=== PATIENT | male | born 1985 | race Caucasian/White ===

== ENCOUNTER 2018-12-25 16:41 | Emergency (ER) | payer BC ==
[2018-12-25] MEDS ORDERED: ALBUTEROL 2.5 MG/3 ML NEB SOL ONE (18:16)
[2018-12-25] MEDS ORDERED: IPRATROPIUM BROM 0.5MG/2.5ML ONE (18:17)
--- NOTE | 2018-12-25 18:58 | RAD REPORT ---
EXAM DESCRIPTION: Ronn Chiu (2 Views)12/25/2018 6:48 pm CLINICAL HISTORY: sob COMPARISON: None FINDINGS: The lungs appear clear of acute infiltrate. The heart is normal size IMPRESSION: No acute abnormalities displayed
--- NOTE | 2018-12-25 19:04 | ER ---
Nurse's Notes [facility] Name: Theron Fowler Age: 33 yrs Sex: Male : 1985 Arrival Date: 12/25/2018 Time: 16:46 Bed 10 Private MD: None, None Diagnosis: Dyspnea Presentation: 12/25 16:58 Presenting complaint: Patient states: having shortness of breath since Tuesday, sg reports recently starting work at the [employer], has had some episodes of chest tightness, reports having stopped smoking about 1-2 days ago. Transition of care: patient was not received from another setting of care. Onset of symptoms was December 25, 2018. Risk Assessment: Do you want to hurt yourself or someone else? Patient reports no desire to harm self or others. Initial Sepsis Screen: Does the patient meet any 2 criteria? No. Patient's initial sepsis screen is negative. Care prior to arrival: None. 16:58 Method Of Arrival: Ambulatory 16:58 Acuity: ADIS 4 sg 18:15 Initial Sepsis Screen: Does the patient have a suspected source of infection? No. rv Patient's initial sepsis screen is negative. Historical: - Allergies: 16:58 SHELLFISH; sg - PMHx: 16:58 Asthma; sg - PSHx: 16:58 Hernia repair; Cholecystectomy; sg - Immunization history:: Adult Immunizations up to date. - Social history:: Smoking status: Patient uses tobacco products, denies chronic smoking, but will smoke occasionally. - Ebola Screening: : Patient negative for fever greater than or equal to 101.5 degrees Fahrenheit, and additional compatible Ebola Virus Disease symptoms Patient denies exposure to infectious person Patient denies travel to an Ebola-affected area in the 21 days before illness onset No symptoms or risks identified at this time. Screenin:15 Abuse screen: Denies threats or abuse. Denies injuries from another. Nutritional rv screening: No deficits noted. Tuberculosis screening: No symptoms or risk factors identified. Fall Risk None identified. Assessment: 18:14 General: Appears in no apparent distress. comfortable, Behavior is calm, cooperative. rv Pain: Denies pain. Neuro: Level of Consciousness is awake, alert, obeys commands, Oriented to person, place, time, situation. Cardiovascular: Capillary refill < 3 seconds. Respiratory: Airway is patent. GI: No signs and/or symptoms were reported involving the gastrointestinal system. : No signs and/or symptoms were reported regarding the genitourinary system. EENT: No signs and/or symptoms were reported regarding the EENT system. Derm: Skin is intact. Musculoskeletal: No signs and/or symptoms reported regarding the musculoskeletal system. Vital Signs: 16:59 BP 102 / 64; Pulse 64; Resp 17; Temp 97.2; Pulse Ox 100% on R/A; Weight 81.65 kg; sg Height 5 ft. 3 in. (160.02 cm); 19:09 BP 110 / 70; Pulse 70; Resp 18 S; Pulse Ox 100% on R/A; rv 16:59 Body Mass Index 31.89 (81.65 kg, 160.02 cm) ED Course: 16:46 Patient arrived in ED. sb2 16:47 None, None is Private Physician. sb2 16:58 Arm band placed on. sg 16:59 Triage completed. sg 17:54 Bárbara Ashraf F[facility]-C [facility]. kb 17:54 Ponce Herrera MD is Attending Physician. kb 18:15 Patient has correct armband on for positive identification. Bed in low position. Call rv light in reach. Pulse ox on. NIBP on. 18:46 X-ray completed. Patient tolerated procedure well. Patient moved back from radiology. [facility] 18:48 Chest Pa And Lat (2 Views) XRAY In Process Unspecified. EDMS 19:08 No provider procedures requiring assistance completed. Patient did not have IV access rv during this emergency room visit. Administered Medications: 18:05 Drug: DuoNeb (3:1) (2.5 mg - 0.5 mg) 3 ml Route: Nebulizer; rv 19:08 Follow up: Response: Marked relief of symptoms rv Outcome: 19:04 Discharge ordered by . kb 19:08 Discharged to home ambulatory. rv 19:08 Condition: good 19:08 Discharge instructions given to patient, Instructed on discharge instructions, follow up and referral plans. medication usage, Demonstrated understanding of instructions, follow-up care, medications, Prescriptions given X 1. 19:15 Patient left the ED. rv Signatures: Dispatcher [employer] EDMS Bárbara Ashraf FNP-C FNP-Ckb Gay, Steven, RN RN Paulette Tamez 1 Scarlett Duron sb2 Otf, Fred, RN RN rv
--- NOTE | 2018-12-25 19:04 | EDPHYS ---
Physician Documentation [facility] Name: Theron Fowler Age: 33 yrs Sex: Male : 1985 Arrival Date: 12/25/2018 Time: 16:46 Bed 10 Private MD: None, None ED Physician Ponce Herrera HPI: 12/25 19:03 This 33 yrs old Male presents to ER via Ambulatory with complaints of Asthma. kb 19:03 The patient has shortness of breath and the patient has a history of asthma, kb intermittently. Onset: The symptoms/episode began/occurred 3 day(s) ago. Duration: The symptoms are intermittent, with no pattern. The patient's shortness of breath has no apparent modifying factors. Associated signs and symptoms: The patient has no apparent associated signs or symptoms. Severity of symptoms: At their worst the symptoms were mild moderate in the emergency department the symptoms have improved moderately. The patient has not experienced similar symptoms in the past. The patient has not recently seen a physician. Historical: - Allergies: 16:58 SHELLFISH; sg - PMHx: 16:58 Asthma; sg - PSHx: 16:58 Hernia repair; Cholecystectomy; sg - Immunization history:: Adult Immunizations up to date. - Social history:: Smoking status: Patient uses tobacco products, denies chronic smoking, but will smoke occasionally. - Ebola Screening: : Patient negative for fever greater than or equal to 101.5 degrees Fahrenheit, and additional compatible Ebola Virus Disease symptoms Patient denies exposure to infectious person Patient denies travel to an Ebola-affected area in the 21 days before illness onset No symptoms or risks identified at this time. ROS: 18:29 Constitutional: Negative for fever, chills, and weight loss, ENT: Negative for injury, kb pain, and discharge, Neck: Negative for injury, pain, and swelling, Cardiovascular: Negative for chest pain, palpitations, and edema, Abdomen/GI: Negative for abdominal pain, nausea, vomiting, diarrhea, and constipation, Back: Negative for injury and pain, MS/Extremity: Negative for injury and deformity, Skin: Negative for injury, rash, and discoloration, Neuro: Negative for headache, weakness, numbness, tingling, and seizure. 18:29 Respiratory: Positive for shortness of breath, Negative for cough, dyspnea on exertion, hemoptysis, orthopnea, pleurisy, sputum production, wheezing. Exam: 18:31 Constitutional: This is a well developed, well nourished patient who is awake, alert, kb and in no acute distress. Head/Face: Normocephalic, atraumatic. Chest/axilla: Normal chest wall appearance and motion. Nontender with no deformity. No lesions are appreciated. Cardiovascular: Regular rate and rhythm with a normal S1 and S2. No gallops, murmurs, or rubs. Normal PMI, no JVD. No pulse deficits. Respiratory: Lungs have equal breath sounds bilaterally, clear to auscultation and percussion. No rales, rhonchi or wheezes noted. No increased work of breathing, no retractions or nasal flaring. Abdomen/GI: Soft, non-tender, with normal bowel sounds. No distension or tympany. No guarding or rebound. No evidence of tenderness throughout. Back: No spinal tenderness. No costovertebral tenderness. Full range of motion. Skin: Warm, dry with normal turgor. Normal color with no rashes, no lesions, and no evidence of cellulitis. MS/ Extremity: Pulses equal, no cyanosis. Neurovascular intact. Full, normal range of motion. Neuro: Awake and alert, GCS 15, oriented to person, place, time, and situation. Cranial nerves II-XII grossly intact. Motor strength 5/5 in all extremities. Sensory grossly intact. Cerebellar exam normal. Normal gait. Vital Signs: 16:59 BP 102 / 64; Pulse 64; Resp 17; Temp 97.2; Pulse Ox 100% on R/A; Weight 81.65 kg; sg Height 5 ft. 3 in. (160.02 cm); 19:09 BP 110 / 70; Pulse 70; Resp 18 S; Pulse Ox 100% on R/A; rv 16:59 Body Mass Index 31.89 (81.65 kg, 160.02 cm) sg MDM: 17:54 Patient medically screened. kb 18:29 Data reviewed: vital signs, nurses notes. Data interpreted: Pulse oximetry: on room air kb is 100 %. Interpretation: normal. 19:02 Counseling: I had a detailed discussion with the patient and/or guardian regarding: the kb historical points, exam findings, and any diagnostic results supporting the discharge/admit diagnosis, radiology results, the need for outpatient follow up, a family practitioner, to return to the emergency department if symptoms worsen or persist or if there are any questions or concerns that arise at home. 12/25 18:03 Order name: Chest Pa And Lat (2 Views) XRAY; Complete Time: 19:02 kb Administered Medications: 18:05 Drug: DuoNeb (3:1) (2.5 mg - 0.5 mg) 3 ml Route: Nebulizer; rv 19:08 Follow up: Response: Marked relief of symptoms rv Disposition: 12/26 12:37 Co-signature as Attending Physician, Ponce Herrera MD. rn Disposition: 12/25/18 19:04 Discharged to Home. Impression: Dyspnea. - Condition is Stable. - Discharge Instructions: Shortness of Breath, [id number], Asthma, Adult, [id number]. - Prescriptions for Albuterol Sulfate 90 mcg/actuation - inhale 1-2 puff by INHALATION route every 4-6 hours; 1 Inhaler. - Medication Reconciliation Form, Thank You Letter, Antibiotic Education, Prescription Opioid Use, Work release form form. - Follow up: Emergency Department; When: As needed; Reason: Worsening of condition. Follow up: Private Physician; When: 2 - 3 days; Reason: Recheck today's complaints, Continuance of care, Re-evaluation by your physician. Signatures: Dispatcher [employer] EDBárbara Gaines, JOSÉ ANTONIO BETANCOURTP-Chai Reveles RN RN sg Nieto, Roman, MD MD rn Vicente, Ronaldo, RN RN rv Corrections: (The following items were deleted from the chart) 12/25 19:15 19:04 12/25/2018 19:04 Discharged to Home. Impression: Dyspnea. Condition is Stable. rv Forms are Medication Reconciliation Form, Thank You Letter, Antibiotic Education, Prescription Opioid Use. Follow up: Emergency Department; When: As needed; Reason: Worsening of condition. Follow up: Private Physician; When: 2 - 3 days; Reason: Recheck today's complaints, Continuance of care, Re-evaluation by your physician. kb
== END 2018-12-25 19:15 | disposition home or self-care (01) ==
LOC: ER 16:41
DX: R06.00 Dyspnea, unspecified (principal); Z72.0 Tobacco use
CPT/HCPCS: 71046; 94640; 99284

== ENCOUNTER 2019-01-29 20:56 | Emergency (ER) | payer BC ==
--- OUTSIDE RECORDS SUMMARY | 2019-01-29 20:58 | XMS REPORT ---
:1985 [facility] Address [address] [place] [address] Care Team Providers Name Role Phone Unavailable Unavailable Unavailable Problems This patient has no known problems. Allergies, Adverse Reactions, Alerts This patient has no known allergies or adverse reactions. Medications This patient has no known medications.
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
== END 2019-01-30 00:24 | disposition home or self-care (01) ==
LOC: ER 20:56
DX: S62.317A Displaced fracture of base of fifth metacarpal bone, left hand, initial encounter for closed fracture (principal); V49.9XXA Car occupant (driver) (passenger) injured in unspecified traffic accident, initial encounter; J45.909 Unspecified asthma, uncomplicated; Z91.013 Allergy to seafood
CPT/HCPCS: 99283

== ENCOUNTER 2019-10-22 09:18 | Emergency (ER) | payer BC ==
--- OUTSIDE RECORDS SUMMARY | 2019-10-22 09:20 | XMS REPORT ---
:1985 [facility] Address [address] [place] [address] Care Team Providers Name Role Phone Unavailable Unavailable Unavailable Problems This patient has no known problems. Allergies, Adverse Reactions, Alerts This patient has no known allergies or adverse reactions. Medications This patient has no known medications.
--- NOTE | 2019-10-22 10:03 | ER ---
Nurse's Notes [facility] Name: Theron Fowler Age: 34 yrs Sex: Male : 1985 Arrival Date: 10/22/2019 Time: 09:23 Bed 20 Private MD: Diagnosis: Acute sinusitis Presentation: 10/22 09:40 Presenting complaint: Patient states: sinus pressure, headache, X 3 days, +headache, no iw cough, no congestion. Transition of care: patient was not received from another setting of care. Onset of symptoms was October 20, 2019. Risk Assessment: Do you want to hurt yourself or someone else? Patient reports no desire to harm self or others. Initial Sepsis Screen: Does the patient meet any 2 criteria? No. Patient's initial sepsis screen is negative. Does the patient have a suspected source of infection? No. Patient's initial sepsis screen is negative. Care prior to arrival: None. 09:40 Method Of Arrival: Ambulatory iw 09:40 Acuity: ADIS 4 iw Historical: - Allergies: 09:44 SHELLFISH; iw - Home Meds: 09:44 None [Active]; iw - PMHx: 09:44 Asthma; iw - PSHx: 09:44 Hernia repair; Cholecystectomy; iw - Immunization history:: Adult Immunizations not up to date. - Social history:: Smoking status: Patient/guardian denies using tobacco. - Ebola Screening: : Patient negative for fever greater than or equal to 101.5 degrees Fahrenheit, and additional compatible Ebola Virus Disease symptoms Patient denies exposure to infectious person Patient denies travel to an Ebola-affected area in the 21 days before illness onset No symptoms or risks identified at this time. Screenin:40 Abuse screen: Denies threats or abuse. Nutritional screening: No deficits noted. aa5 Tuberculosis screening: No symptoms or risk factors identified. Fall Risk None identified. Assessment: 09:40 General: Appears comfortable, Behavior is calm, cooperative. Pain: Complains of pain in aa5 forehead Pain does not radiate. Pain currently is 5 out of 10 on a pain scale. Quality of pain is described as pressure, Pain began 2-3 days ago. Is continuous. Neuro: Level of Consciousness is awake, alert, obeys commands, Oriented to person, place, time, situation, Union Laborer are equal bilaterally Moves all extremities. Speech is normal, Facial symmetry appears normal, Pupils are PERRLA. Cardiovascular: Heart tones S1 S2 present Capillary refill < 3 seconds is brisk in bilateral fingers Rhythm is regular. Respiratory: Airway is patent Respiratory effort is even, unlabored, Respiratory pattern is regular, symmetrical, Breath sounds are clear bilaterally. Denies cough, shortness of breath. GI: No signs and/or symptoms were reported involving the gastrointestinal system. : No signs and/or symptoms were reported regarding the genitourinary system. EENT: Denies nasal congestion, nasal discharge, Pt states "It started with the inside of my right ear was itching on Tuesday but it's not anymore" . Derm: Skin is pink, warm \\T\\ dry. Musculoskeletal: Range of motion: intact in all extremities. 10:18 Reassessment: Patient is alert, oriented x 3, equal unlabored respirations, skin aa5 warm/dry/pink. Vital Signs: 09:44 BP 129 / 84; Pulse 98; Resp 16; Temp 97.8; Pulse Ox 99% on R/A; Weight 81.65 kg; Height iw 5 ft. 4 in. (162.56 cm); 09:44 Body Mass Index 30.90 (81.65 kg, 162.56 cm) iw ED Course: 09:23 Patient arrived in ED. mr 09:24 Chad Kennedy FNP-C [facility] la1 09:24 Ponce Herrera MD is Attending Physician. la1 09:37 Tori Barnes, STEVIE is Primary Nurse. aa5 09:39 Arm band placed on. aa5 09:39 Patient has correct armband on for positive identification. Bed in low position. Call aa5 light in reach. Side rails up X 1. 09:43 Triage completed. iw 10:18 No provider procedures requiring assistance completed. Patient did not have IV access aa5 during this emergency room visit. Administered Medications: No medications were administered Outcome: 09:58 Discharge ordered by . la1 10:18 Discharged to home ambulatory. aa5 10:18 Condition: good 10:18 Discharge instructions given to patient, Instructed on discharge instructions, follow up and referral plans. medication usage, Demonstrated understanding of instructions, follow-up care, medications, Prescriptions given X 1. 10:20 Patient left the ED. tw2 Signatures: Neisha Marino Patt Murillo, RN RN iw Tori Barnes, RN RN aa5 Chad Kennedy, VACUUM EVAPORATION OPERATOR-C VACUUM EVAPORATION OPERATOR-Cla1 Bee Tavera, RN RN tw2
--- NOTE | 2019-10-22 10:04 | EDPHYS ---
Physician Documentation [facility] Name: Theron Fowler Age: 34 yrs Sex: Male : 1985 Arrival Date: 10/22/2019 Time: 09:23 Bed 20 Private MD: ED Physician Ponce Herrera HPI: 10/22 10:18 This 34 yrs old Male presents to ER via Ambulatory with complaints of Sinus la1 Pain. 10:18 Onset: The symptoms/episode began/occurred 3 day(s) ago. Associated signs and symptoms: la1 Pertinent positives: congestion, headache, nasal discharge, Pertinent negatives: constipation, fever. Modifying factors: The patient symptoms are alleviated by the patient symptoms are aggravated by nothing. Severity of symptoms: At their worst the symptoms were mild. Modifying factors: The symptoms are alleviated by nothing, the symptoms are aggravated by nothing. Associated signs and symptoms: Pertinent positives: rhinorrhea, Pertinent negatives: sore throat. Sinus congestion and JOHNSON for the last three days, did not feel like he could continue working so needed to come in. Historical: - Allergies: 09:44 SHELLFISH; iw - Home Meds: :44 None [Active]; iw - PMHx: 09:44 Asthma; iw - PSHx: 09:44 Hernia repair; Cholecystectomy; iw - Immunization history:: Adult Immunizations not up to date. - Social history:: Smoking status: Patient/guardian denies using tobacco. - Ebola Screening: : Patient negative for fever greater than or equal to 101.5 degrees Fahrenheit, and additional compatible Ebola Virus Disease symptoms Patient denies exposure to infectious person Patient denies travel to an Ebola-affected area in the 21 days before illness onset No symptoms or risks identified at this time. ROS: 10:19 Constitutional: Negative for fever, chills, and weight loss, Eyes: Negative for injury, la1 pain, redness, and discharge, Neck: Negative for injury, pain, and swelling, Cardiovascular: Negative for chest pain, palpitations, and edema, Respiratory: Negative for shortness of breath, cough, wheezing, and pleuritic chest pain, Abdomen/GI: Negative for abdominal pain, nausea, vomiting, diarrhea, and constipation, MS/Extremity: Negative for injury and deformity, Neuro: Negative for headache, weakness, numbness, tingling, and seizure. 10:19 ENT: Positive for nasal discharge, rhinorrhea, sinus congestion. Exam: 10:20 Constitutional: This is a well developed, well nourished patient who is awake, alert, la1 and in no acute distress. Head/Face: Normocephalic, atraumatic. Eyes: Pupils equal round and reactive to light, extra-ocular motions intact. Lids and lashes normal. Conjunctiva and sclera are non-icteric and not injected. Cornea within normal limits. Periorbital areas with no swelling, redness, or edema. ENT: Nares patent. No nasal discharge, no septal abnormalities noted. Right TM appears to have perforation, no redness, drainage Cardiovascular: Regular rate and rhythm with a normal S1 and S2. No gallops, murmurs, or rubs. Normal PMI, no JVD. No pulse deficits. Respiratory: Lungs have equal breath sounds bilaterally, clear to auscultation and percussion. No rales, rhonchi or wheezes noted. No increased work of breathing, no retractions or nasal flaring. Abdomen/GI: Soft, non-tender, with normal bowel sounds. No distension or tympany. No guarding or rebound. No evidence of tenderness throughout. Vital Signs: 09:44 BP 129 / 84; Pulse 98; Resp 16; Temp 97.8; Pulse Ox 99% on R/A; Weight 81.65 kg; Height iw 5 ft. 4 in. (162.56 cm); 09:44 Body Mass Index 30.90 (81.65 kg, 162.56 cm) iw MDM: 09:36 Patient medically screened. la1 09:50 Data reviewed: vital signs, nurses notes, and as a result, I will discharge patient. la1 Data interpreted: Pulse oximetry: on room air is 99 %. Interpretation: normal. Counseling: I had a detailed discussion with the patient and/or guardian regarding: the historical points, exam findings, and any diagnostic results supporting the discharge/admit diagnosis, the need for outpatient follow up, a family practitioner. ED course: Pt tolerating PO, no fevers reported symptoms for three days, will FU with PCP, offered testing for flu, pt declined, will treat symptomatically and have pt return with new or worsening symptoms. Administered Medications: No medications were administered Disposition: 17:06 Co-signature as Attending Physician, Ponce Herrera MD. rn Disposition: 12/02/19 09:58 Discharged to Home. Impression: Acute sinusitis. - Condition is Stable. - Discharge Instructions: Sinus Headache, Sinusitis, Adult. - Prescriptions for Zofran 4 mg Oral Tablet - take 1 tablet by ORAL route every 12 hours As needed; 20 tablet. - Work release form, Medication Reconciliation Form, Thank You Letter form. - Follow up: Private Physician; When: 2 - 3 days; Reason: Recheck today's complaints, Re-evaluation by your physician. - Problem is new. - Symptoms are unchanged. Signatures: Patt Chao RN RN Ponce Whyte MD MD rn Chad Kennedy, LUMBER KILN OPERATOR-C LUMBER KILN OPERATOR-Cla1 Bee Tavera RN RN tw2 Corrections: (The following items were deleted from the chart) 10:20 09:58 10/22/2019 09:58 Discharged to Home. Impression: Acute sinusitis. Condition is tw2 Stable. Forms are Medication Reconciliation Form, Thank You Letter, Antibiotic Education, Prescription Opioid Use. Follow up: Private Physician; When: 2 - 3 days; Reason: Recheck today's complaints, Re-evaluation by your physician. Problem is new. Symptoms are unchanged. la1
[2019-10-22 10:26] VITALS: BP 129/84; TEMP 97.8; O2SAT 99
== END 2019-10-22 10:20 | disposition home or self-care (01) ==
LOC: ER 09:18
DX: J01.90 Acute sinusitis, unspecified (principal); Z91.013 Allergy to seafood
CPT/HCPCS: 99282

== ENCOUNTER 2019-11-12 18:46 | Emergency (ER) | payer BC ==
--- OUTSIDE RECORDS SUMMARY | 2019-11-12 18:49 | XMS REPORT ---
:1985 [facility] Address [address] [place] [address] Care Team Providers Name Role Phone Unavailable Unavailable Unavailable Problems This patient has no known problems. Allergies, Adverse Reactions, Alerts This patient has no known allergies or adverse reactions. Medications This patient has no known medications.
[2019-11-12] MEDS ORDERED: IPRATROPIUM BROM 0.5MG/2.5ML ONE (20:33)
[2019-11-12] MEDS ORDERED: NA CHLORIDE 0.9% 1,000 ML ONE (20:33)
[2019-11-12] MEDS ORDERED: ALBUTEROL 2.5 MG/3 ML NEB SOL ONE (20:33)
[2019-11-12 21:14] LABS: Basophils % 0.4 % (0-1.3); Hematocrit 43.7 % (39.6-49.0); Lymphocytes % 25.7 % (15.3-44.8); MPV 7.2 fL (7.6-11.3); RBC Red Blood Cell Count 4.95 M/uL (4.33-5.43)
[2019-11-12] MEDS ORDERED: METHYLPREDNISOLONE 125 MG INJ ONE (21:30)
[2019-11-12] MEDS ORDERED: AZITHROMYCIN 500 MG INJ IVPB ONE (21:31)
[2019-11-12] MEDS ORDERED: predniSONE 20 MG TAB ONE (21:31)
[2019-11-12] MEDS ORDERED: NA CHLORIDE 0.9% 250 ML ONE (21:31)
[2019-11-12] MEDS ORDERED: CEFTRIAXONE/SWI 1gm 2 GM/20 ML SYR ONE (21:31)
[2019-11-12 21:43] LABS: Albumin 4.1 g/dL (3.4-5.0); Bilirubin Total 0.3 mg/dL (0.2-1.0); Potassium 3.6 mmol/L (3.5-5.1); Protein, Total 7.5 g/dL (6.4-8.2)
--- NOTE | 2019-11-12 21:54 | EDPHYS ---
Physician Documentation [facility] Name: Theron Fowler Age: 34 yrs Sex: Male : 1985 Arrival Date: 11/12/2019 Time: 18:48 Bed 24 Private MD: ED Physician Quincy Queen HPI: 11/12 20:29 This 34 yrs old Male presents to ER via Ambulatory with complaints of Sinus jolene Pain, Chest Congestion, Leg Swelling. 20:29 The patient or guardian reports cough, difficulty breathing. Onset: The jolene symptoms/episode began/occurred 3 week(s) ago. Severity of symptoms: At their worst the symptoms were moderate, in the emergency department the symptoms are unchanged. Modifying factors: The symptoms are alleviated by nothing, the symptoms are aggravated by nothing. Associated signs and symptoms: Pertinent positives: chest pain, fever, nausea, rhinorrhea, sore throat. The patient has not experienced similar symptoms in the past. Historical: - Allergies: 18:55 SHELLFISH; sv - PMHx: 18:55 Asthma; sv - PSHx: 18:55 Hernia repair; Cholecystectomy; sv - Immunization history:: Flu vaccine status is unknown. - Social history:: Smoking status: unknown. - Ebola Screening: : No symptoms or risks identified at this time. ROS: 20:30 Constitutional: Negative for fever, chills, and weight loss, Eyes: Negative for injury, jolene pain, redness, and discharge, ENT: Negative for injury, pain, and discharge, Neck: Negative for injury, pain, and swelling, Cardiovascular: Negative for chest pain, palpitations, and edema, Abdomen/GI: Negative for abdominal pain, nausea, vomiting, diarrhea, and constipation, Back: Negative for injury and pain, : Negative for injury, bleeding, discharge, and swelling, MS/Extremity: Negative for injury and deformity, Skin: Negative for injury, rash, and discoloration, Neuro: Negative for headache, weakness, numbness, tingling, and seizure, Psych: Negative for depression, anxiety, suicide ideation, homicidal ideation, and hallucinations, Allergy/Immunology: Negative for hives, rash, and allergies, Endocrine: Negative for neck swelling, polydipsia, polyuria, polyphagia, and marked weight changes, Hematologic/Lymphatic: Negative for swollen nodes, abnormal bleeding, and unusual bruising. 20:30 Respiratory: Positive for cough, shortness of breath, at rest. Exam: 20:30 Constitutional: This is a well developed, well nourished patient who is awake, alert, jolene and in no acute distress. Head/Face: Normocephalic, atraumatic. Eyes: Pupils equal round and reactive to light, extra-ocular motions intact. Lids and lashes normal. Conjunctiva and sclera are non-icteric and not injected. Cornea within normal limits. Periorbital areas with no swelling, redness, or edema. ENT: Nares patent. No nasal discharge, no septal abnormalities noted. Tympanic membranes are normal and external auditory canals are clear. Oropharynx with no redness, swelling, or masses, exudates, or evidence of obstruction, uvula midline. Mucous membranes moist. Neck: Trachea midline, no thyromegaly or masses palpated, and no cervical lymphadenopathy. Supple, full range of motion without nuchal rigidity, or vertebral point tenderness. No Meningismus. Chest/axilla: Normal chest wall appearance and motion. Nontender with no deformity. No lesions are appreciated. Cardiovascular: Regular rate and rhythm with a normal S1 and S2. No gallops, murmurs, or rubs. Normal PMI, no JVD. No pulse deficits. Abdomen/GI: Soft, non-tender, with normal bowel sounds. No distension or tympany. No guarding or rebound. No evidence of tenderness throughout. Back: No spinal tenderness. No costovertebral tenderness. Full range of motion. Male : Normal genitalia with no discharge or lesions. Skin: Warm, dry with normal turgor. Normal color with no rashes, no lesions, and no evidence of cellulitis. MS/ Extremity: Pulses equal, no cyanosis. Neurovascular intact. Full, normal range of motion. Neuro: Awake and alert, GCS 15, oriented to person, place, time, and situation. Cranial nerves II-XII grossly intact. Motor strength 5/5 in all extremities. Sensory grossly intact. Cerebellar exam normal. Normal gait. Psych: Awake, alert, with orientation to person, place and time. Behavior, mood, and affect are within normal limits. 20:30 Respiratory: mild respiratory distress is noted, Respirations: labored breathing, is not present, Breath sounds: rhonchi, that are moderate, are heard in the right upper lobe, right middle lobe, right posterior upper lobe, right posterior middle lobe and right posterior lower lobe, stridor, is not appreciated, + upper airway congestion. wheezing: expiratory is heard in the right posterior upper lobe, right posterior middle lobe and right posterior lower lobe. 20:40 Musculoskeletal/extremity: DVT Exam: No signs of deep vein thrombosis. no pain, no jolene swelling, no tenderness, negative Homans' sign noted on exam, no appreciated bluish discoloration, no erythema, no increased warmth. 21:28 Musculoskeletal/extremity: DVT Exam: [facility] Vital Signs: 18:55 BP 137 / 74; Pulse 95; Resp 20; Temp 98.8; Pulse Ox 99% ; Weight 81.65 kg; Height 5 ft. sv 4 in. (162.56 cm); 21:43 Pulse 82; Resp 18; Temp 98.3; Pulse Ox 100% on R/A; mg2 21:46 BP 118 / 70; mg2 22:44 BP 120 / 78; Pulse 80; Resp 18; Temp 98; Pulse Ox 100% on R/A; mg2 18:55 Body Mass Index 30.90 (81.65 kg, 162.56 cm) sv MDM: 19:35 Patient medically screened. [facility] 20:31 Data reviewed: vital signs, nurses notes, lab test result(s), radiologic studies, plain jolene films. 11/12 20:25 Order name: CBC with Diff; Complete Time: 21:26 [facility] 11/12 20:25 Order name: Comprehensive Metabolic Panel; Complete Time: 21:52 [facility] 11/12 20:25 Order name: Blood Culture Adult (2) [facility] 11/12 20:40 Order name: Chest Pa And Lat (2 Views) XRAY [facility] Administered Medications: 20:49 Drug: NS 0.9% 1000 ml Route: IV; Rate: 1 bolus; Site: right forearm; mg2 22:44 Follow up: Response: No adverse reaction; IV Status: Completed infusion; IV Intake: mg2 1000ml 20:49 Drug: Xopenex 2.5 mg Route: Inhalation; mg2 22:43 Follow up: Response: No adverse reaction mg2 20:49 Drug: AtroVENT Aerosol 0.5 mg Route: Inhalation; mg2 22:43 Follow up: Response: No adverse reaction mg2 21:41 Drug: Rocephin 1 grams Route: IV; Rate: per protocol; Site: right forearm; mg2 22:42 Follow up: IV Status: Completed infusion mg2 21:41 Drug: SOLU-Medrol 125 mg Route: IVP; Site: right forearm; mg2 22:41 Follow up: Response: No adverse reaction; Marked relief of symptoms mg2 21:41 Drug: predniSONE 40 mg Route: PO; mg2 22:41 Follow up: Response: No adverse reaction; Marked relief of symptoms mg2 21:42 Drug: Rocephin 1 grams Route: IV; Rate: per protocol; Site: right forearm; mg2 22:43 Follow up: Response: No adverse reaction; IV Status: Completed infusion mg2 21:42 Drug: Zithromax 500 mg Route: IVPB; Infused Over: 1 hrs; Site: right forearm; mg2 22:43 Follow up: Response: No adverse reaction; IV Status: Completed infusion; IV Intake: mg2 250ml Disposition: 11/12/19 21:53 Discharged to Home. Impression: Asthma, Acute upper respiratory infection, unspecified, Bronchitis, not specified as acute or chronic. - Condition is Stable. - Discharge Instructions: Upper Respiratory Infection, Adult, Cool Mist Vaporizer, Upper Respiratory Infection, Adult, [id number], Cough, Adult, [id number], Cough, Adult. - Prescriptions for Albuterol Sulfate 2.5 mg /3 mL (0.083 %) Inhalation Solution for Nebulization - inhale 1 unit by NEBULIZATION route every 8 hours As needed; 1 box. Prednisone 20 mg Oral Tablet - take 2 tablet by ORAL route once daily for 5 days; 10 tablet. Albuterol Sulfate 90 mcg/actuation - inhale 1-2 puff by INHALATION route every 4-6 hours; 1 Inhaler. Zithromax 500 mg Oral Tablet - take 1 tablet by ORAL route once daily for 5 days; 5 tablet. - Medication Reconciliation Form, Thank You Letter, Antibiotic Education, Prescription Opioid Use form. - Follow up: Private Physician; When: 2 - 3 days; Reason: Recheck today's complaints, Continuance of care, Re-evaluation by your physician. - Problem is new. - Symptoms have improved. Signatures: Dispatcher [employer] Nithya Hughes RN RN sv Anderson, Corey, MD MD cha Gardose, Michele, RN RN mg2 Corrections: (The following items were deleted from the chart) 22:45 21:53 11/12/2019 21:53 Discharged to Home. Impression: Asthma; Acute upper respiratory mg2 infection, unspecified; Bronchitis, not specified as acute or chronic. Condition is Stable. Discharge Instructions: Upper Respiratory Infection, Adult, Cool Mist Vaporizer, Upper Respiratory Infection, Adult, [id number], Cough, Adult, [id number], Cough, Adult. Prescriptions for Albuterol Sulfate 2.5 mg /3 mL (0.083 %) Inhalation Solution for Nebulization - inhale 1 unit by NEBULIZATION route every 8 hours As needed; 1 box, Prednisone 20 mg Oral Tablet - take 2 tablet by ORAL route once daily for 5 days; 10 tablet, Albuterol Sulfate 90 mcg/actuation - inhale 1-2 puff by INHALATION route every 4-6 hours; 1 Inhaler, Zithromax 500 mg Oral Tablet - take 1 tablet by ORAL route once daily for 5 days; 5 tablet. and Forms are Medication Reconciliation Form, Thank You Letter, Antibiotic Education, Prescription Opioid Use. Follow up: Private Physician; When: 2 - 3 days; Reason: Recheck today's complaints, Continuance of care, Re-evaluation by your physician. Problem is new. Symptoms have improved. jolene
--- NOTE | 2019-11-12 21:54 | ER ---
Nurse's Notes [facility] Name: Theron Fowler Age: 34 yrs Sex: Male : 1985 Arrival Date: 11/12/2019 Time: 18:48 Bed 24 Private MD: Diagnosis: Asthma;Acute upper respiratory infection, unspecified;Bronchitis, not specified as acute or chronic Presentation: 11/12 18:54 Presenting complaint: Patient states: sinus pain, chest congestion, sore throat has sv been ongoing since , was seen here about 2 weeks ago for the same symptoms. Also added on LLE swelling after a recent fall, reports a hx of a left leg injury back in Dec. Transition of care: patient was not received from another setting of care. Onset of symptoms was 2018. Risk Assessment: Do you want to hurt yourself or someone else? Patient reports no desire to harm self or others. Care prior to arrival: None. 18:54 Method Of Arrival: Ambulatory sv 18:54 Acuity: ADIS 3 sv 20:09 Initial Sepsis Screen: Does the patient meet any 2 criteria? No. Patient's initial mg2 sepsis screen is negative. Does the patient have a suspected source of infection? No. Patient's initial sepsis screen is negative. Triage Assessment: 18:54 General: Appears in no apparent distress. comfortable, well developed, Behavior is sv calm, cooperative, appropriate for age. Pain: Complains of pain in face Pain currently is 4 out of 10 on a pain scale. Pain began "since about " Is intermittent, Also complains of no other associated symptoms. Neuro: Level of Consciousness is awake, alert, obeys commands, Oriented to person, place, time, situation, Gait is steady. Respiratory: Airway is patent Respiratory effort is even, unlabored, Respiratory pattern is regular, symmetrical. Derm: Skin is pink, warm \\T\\ dry. Musculoskeletal: Range of motion: intact in all extremities. 20:10 Headache History: The patient has had previous headaches. mg2 Historical: - Allergies: 18:55 SHELLFISH; sv - PMHx: 18:55 Asthma; sv - PSHx: 18:55 Hernia repair; Cholecystectomy; sv - Immunization history:: Flu vaccine status is unknown. - Social history:: Smoking status: unknown. - Ebola Screening: : No symptoms or risks identified at this time. Screenin:50 Abuse screen: Denies threats or abuse. Denies injuries from another. Nutritional mg2 screening: No deficits noted. Tuberculosis screening: No symptoms or risk factors identified. Fall Risk None identified. Assessment: 19:52 General: Appears in no apparent distress. comfortable, Behavior is calm, cooperative. mg2 20:07 Pain: Complains of pain in left leg. Neuro: Level of Consciousness is awake, alert, mg2 obeys commands, Oriented to person, place, time, situation. Cardiovascular: Capillary refill < 3 seconds Patient's skin is warm and dry. Respiratory: Airway is patent Respiratory effort is even, unlabored, Respiratory pattern is regular, symmetrical. Respiratory: Reports cough that is productive. GI: No signs and/or symptoms were reported involving the gastrointestinal system. : No signs and/or symptoms were reported regarding the genitourinary system. EENT: Reports nasal congestion. Derm: Skin is intact, is healthy with good turgor, Skin is pink, warm \\T\\ dry. normal. Musculoskeletal: Circulation, motion, and sensation intact. Capillary refill < 3 seconds. 21:54 Reassessment: patient for dc after completing iv antibiotic. mg2 22:44 Reassessment: Patient appears in no apparent distress at this time. Patient states mg2 feeling better. Vital Signs: 18:55 BP 137 / 74; Pulse 95; Resp 20; Temp 98.8; Pulse Ox 99% ; Weight 81.65 kg; Height 5 ft. sv 4 in. (162.56 cm); 21:43 Pulse 82; Resp 18; Temp 98.3; Pulse Ox 100% on R/A; mg2 21:46 BP 118 / 70; mg2 22:44 BP 120 / 78; Pulse 80; Resp 18; Temp 98; Pulse Ox 100% on R/A; mg2 18:55 Body Mass Index 30.90 (81.65 kg, 162.56 cm) sv ED Course: 18:48 Patient arrived in ED. ag5 18:55 Triage completed. sv 18:56 Arm band placed on. sv 19:23 Quincy Queen MD is Attending Physician. jolene 19:32 Jarod Arguelles, STEVIE is Primary Nurse. mg2 19:51 No provider procedures requiring assistance completed. mg2 19:52 Patient has correct armband on for positive identification. mg2 20:51 Inserted saline lock: 20 gauge in right forearm, using aseptic technique. Blood mg2 collected. 20:57 Chest Pa And Lat (2 Views) XRAY In Process Unspecified. EDMS 22:45 IV discontinued, intact, bleeding controlled, No redness/swelling at site. Pressure mg2 dressing applied. Administered Medications: 20:49 Drug: NS 0.9% 1000 ml Route: IV; Rate: 1 bolus; Site: right forearm; mg2 22:44 Follow up: Response: No adverse reaction; IV Status: Completed infusion; IV Intake: mg2 1000ml 20:49 Drug: Xopenex 2.5 mg Route: Inhalation; mg2 22:43 Follow up: Response: No adverse reaction mg2 20:49 Drug: AtroVENT Aerosol 0.5 mg Route: Inhalation; mg2 22:43 Follow up: Response: No adverse reaction mg2 21:41 Drug: Rocephin 1 grams Route: IV; Rate: per protocol; Site: right forearm; mg2 22:42 Follow up: IV Status: Completed infusion mg2 21:41 Drug: SOLU-Medrol 125 mg Route: IVP; Site: right forearm; mg2 22:41 Follow up: Response: No adverse reaction; Marked relief of symptoms mg2 21:41 Drug: predniSONE 40 mg Route: PO; mg2 22:41 Follow up: Response: No adverse reaction; Marked relief of symptoms mg2 21:42 Drug: Rocephin 1 grams Route: IV; Rate: per protocol; Site: right forearm; mg2 22:43 Follow up: Response: No adverse reaction; IV Status: Completed infusion mg2 21:42 Drug: Zithromax 500 mg Route: IVPB; Infused Over: 1 hrs; Site: right forearm; mg2 22:43 Follow up: Response: No adverse reaction; IV Status: Completed infusion; IV Intake: mg2 250ml Intake: 22:43 IV: 250ml; Total: 250ml. mg2 22:44 IV: 1000ml; Total: 1250ml. mg2 Outcome: 21:53 Discharge ordered by . jolene 22:45 Discharged to home ambulatory. mg2 22:45 Condition: stable 22:45 Discharge instructions given to patient, Instructed on discharge instructions, follow up and referral plans. medication usage, Demonstrated understanding of instructions, follow-up care, medications, Prescriptions given X 4. 22:45 Patient left the ED. mg2 Signatures: Dispatcher [employer] EDNithya Olmedo RN RN sv Anderson, Corey, MD MD cha Gardose, Michele, RN RN mg2 Tanya Mccarty ag5 Corrections: (The following items were deleted from the chart) 18:54 Presenting complaint: Patient states: sinus pain, chest congestion, sore throat sv has been ongoing since , was seen here about 2 weeks ago for the same symptoms. sv 18:54 Acuity: ADIS 4 sv sv : 18:55 Pulse 95bpm; Resp 20bpm; Pulse Ox 99%; Temp 98.8F; 81.65 kg; Height 5 ft. 4 in.; sv BMI: 30.9; sv 20:08 19:52 General: Appears mg2 mg2
[2019-11-13 01:27] VITALS: O2SAT 100
[2019-11-13 01:30] VITALS: BP 120/78; TEMP 98
--- NOTE | 2019-11-13 13:06 | RAD REPORT ---
EXAM DESCRIPTION: RAD - Chest Pa And Lat (2 Views) - 11/12/2019 8:56 pm CLINICAL HISTORY: COUGH COMPARISON: None available. Due to technical malfunction on the medical observer, the prior imaging studies not available for comparison. TECHNIQUE: PA and lateral views of the chest were obtained. FINDINGS: The lungs are clear. Heart size is normal and central vasculature is within normal limit s. No pleural effusion or pneumothorax seen. No acute bony finding noted. No aortic abnormality. IMPRESSION: No acute cardiopulmonary process.
== END 2019-11-12 22:45 | disposition home or self-care (01) ==
LOC: ER 18:46
DX: J40 Bronchitis, not specified as acute or chronic (principal); Z91.013 Allergy to seafood
CPT/HCPCS: 96365; 96361; 87040 ×2; 85025; 36415; 80053; 71046; 96375; 99284; J0456; J0696; J7030 ×2; J2930; J7512

== ENCOUNTER 2022-04-11 14:19 | Emergency (ER) | payer OTHER ==
[2022-04-11 15:25] LABS: Absolute Lymphocytes (CBC) 2.3 K/uL (0.7-4.9); Hematocrit 44.7 % (39.6-49.0); Lymphocytes % 26.2 % (15.3-44.8); MPV 7.3 fL (7.6-11.3)
[2022-04-11 15:39] LABS: Albumin 4.1 g/dL (3.4-5.0); Bilirubin Total 0.8 mg/dL (0.2-1.0); Protein, Total 7.6 g/dL (6.4-8.2)
--- NOTE | 2022-04-11 16:11 | RAD REPORT ---
EXAM DESCRIPTION: CTAbdomen Pelvis W Contrast - 04/11/2022 4:01 pm CLINICAL HISTORY: Abdominal pain. RUQ pain COMPARISON: <Comparisons> TECHNIQUE: Biphasic CT imaging of the abdomen and pelvis was performed with 100 ml non-ionic IV cont rast. All CT scans are performed using dose optimization technique as appropriate and may include automated exposure control or mA/KV adjustment according to patient size. FINDINGS: The lung bases are clear. The liver is diffusely fatty. Cholecystectomy clips. Spleen, pancreas, adrenal glands and kidneys are within normal limits. No bowel obstruction, free air, free fluid or abscess. The appendix is normal. No evidence of signi ficant lymphadenopathy. No suspicious bony findings. IMPRESSION: No acute intra-abdominal or pelvic finding. Mild fatty liver.
[2022-04-11 16:14] LABS: Urine Blood Negative (Negative); Urine Glucose Negative (Negative); Urine Protein Negative (Negative)
[2022-04-11 16:24] LABS: Urine Bacteria NONE SEEN /HPF (NONE SEEN); Urine RBC NONE SEEN /HPF (NONE SEEN)
[2022-04-11] MEDS ORDERED: KETOROLAC 30 MG/ML INJ ONE (17:05)
[2022-04-11] MEDS ORDERED: NA CHLORIDE 0.9% 1,000 ML ONE (17:05)
[2022-04-11] MEDS ORDERED: CYCLOBENZAPRINE 10 MG TAB ONE (17:26)
--- NOTE | 2022-04-11 17:31 | ER ---
Nurse's Notes [facility] Name: Theron Fowler Age: 36 yrs Sex: Male : 1985 Arrival Date: 04/11/2022 Time: 14:22 Bed DIS3 Private MD: Nino Cortez Diagnosis: Abdominal pain, unspecified;Strain of muscle, fascia and tendon of abdomen Presentation: 04/11 14:53 Chief complaint: Patient states: lifted a case of gatorade estimated "over 50 pounds"; vg1 and woke up at 0300 in the morning with sharp pain in RUQ. States has a hiatal hernia. Coronavirus screen: Vaccine status: Patient reports being unvaccinated. Client denies travel out of the [place] in the last 14 days. Ebola Screen: Patient denies exposure to infectious person. Patient denies travel to an Ebola-affected area in the 21 days before illness onset. Initial Sepsis Screen: Does the patient meet any 2 criteria? No. Patient's initial sepsis screen is negative. Does the patient have a suspected source of infection? No. Patient's initial sepsis screen is negative. Risk Assessment: Do you want to hurt yourself or someone else? Patient reports no desire to harm self or others. Onset of symptoms was April 11, 2022. 14:53 Method Of Arrival: Ambulatory vg1 14:53 Acuity: ADIS 3 vg1 Triage Assessment: 14:58 General: Appears uncomfortable, Behavior is calm, cooperative. Pain: Complains of pain vg1 in right upper quadrant Pain currently is 5 out of 10 on a pain scale. GI: Abdomen is round non-distended, Abdomen is tender to palpation in right upper quadrant. Historical: - Allergies: 14:58 SHELLFISH; vg1 - Home Meds: 14:58 Pepcid Oral [Active]; Albuterol Inhl [Active]; vg1 - PMHx: 14:58 Asthma; Hiatal Hernia; vg1 - PSHx: 14:58 Cholecystectomy; vg1 - Immunization history:: Client reports having NOT received the Covid vaccine. - Social history:: Smoking status: Patient denies any tobacco usage or history of. Screenin:41 Abuse screen: Denies threats or abuse. Nutritional screening: No deficits noted. vg1 Tuberculosis screening: No symptoms or risk factors identified. Fall Risk No fall in past 12 months (0 pts). No secondary diagnosis (0 pts). IV access (20 points). Ambulatory Aid- None/Bed Rest/Nurse Assist (0 pts). Gait- Normal/Bed Rest/Wheelchair (0 pts) Mental Status- Oriented to own ability (0 pts). Total Stokes Fall Scale indicates No Risk (0-24 pts). Assessment: 17:06 Reassessment: Patient appears in no apparent distress at this time. No changes from vg1 previously documented assessment. Patient and/or family updated on plan of care and expected duration. Pain level reassessed. Patient is alert, oriented x 3, equal unlabored respirations, skin warm/dry/pink. 17:41 Reassessment: Patient appears in no apparent distress at this time. Patient and/or vg1 family updated on plan of care and expected duration. Pain level reassessed. Patient is alert, oriented x 3, equal unlabored respirations, skin warm/dry/pink. Patient denies pain at this time. Patient states feeling better. Vital Signs: 14:53 BP 139 / 73; Pulse 70; Resp 16; Temp 98.8; Pulse Ox 97% on R/A; Weight 99.79 kg; Height vg1 5 ft. 5 in. (165.10 cm); Pain 5/10; 14:53 Body Mass Index 36.61 (99.79 kg, 165.10 cm) vg1 ED Course: 14:22 Patient arrived in ED. mr 14:23 Nino Cortez MD is Private Physician. mr 14:58 Triage completed. vg1 14:58 Arm band placed on. vg1 15:00 Diego Mays NP is PHCP. pm1 15:00 Mario Barry MD is Attending Physician. pm1 15:20 Inserted saline lock: 20 gauge in right antecubital area, using aseptic technique. zm Blood collected. 15:22 CBC with Diff Sent. zm 15:22 CMP Sent. zm 15:22 Lipase Sent. zm 16:03 CT Abd/Pelvis - IV Contrast Only In Process Unspecified. EDMS 16:14 Urine Microscopic Only Sent. 3 17:19 Jing Diaz, RN is Primary Nurse. 17:41 Patient has correct armband on for positive identification. vg1 17:41 No provider procedures requiring assistance completed. IV discontinued, intact, vg1 bleeding controlled, No redness/swelling at site. Pressure dressing applied. Administered Medications: 17:05 Drug: Ketorolac 30 mg Route: IVP; Site: left antecubital; vg1 17:33 Follow up: Response: No adverse reaction ss 17:41 Follow up: Response: No adverse reaction; Marked relief of symptoms vg1 17:05 Drug: NS 0.9% 1000 ml Route: IV; Rate: 1000 ml; Site: right antecubital; vg1 17:41 Follow up: IV Status: Completed infusion; IV Intake: 1000ml vg1 17:21 Drug: Flexeril (cyclobenzaprine) 10 mg Route: PO; ss 17:33 Follow up: Response: Medication administered at discharge. ss 17:41 Follow up: Response: No adverse reaction vg1 Medication: 17:42 VIS not applicable for this client. vg1 Intake: 17:41 IV: 1000ml; Total: 1000ml. vg1 Outcome: 17:31 Discharge ordered by . pm1 17:41 Discharged to home ambulatory. vg1 17:41 Condition: good 17:41 Discharge instructions given to patient, Instructed on discharge instructions, follow up and referral plans. medication usage, Demonstrated understanding of instructions, follow-up care, medications, Prescriptions given X 2. 17:42 Patient left the ED. vg1 Signatures: Dispatcher [employer] KATRINA MarinoNeisha Shelby, RN RN ss Diego Mays, ALYSE TABLE GAMES MANAGER pm1 Brittany Yun Victoria, RN RN vg1 Lauren Rodney
--- NOTE | 2022-04-11 17:31 | EDPHYS ---
Physician Documentation [facility] Name: Theron Fowler Age: 36 yrs Sex: Male : 1985 Arrival Date: 04/11/2022 Time: : Bed DIS3 Private MD: Nino Cortez ED Physician Mario Barry HPI: 04/11 14:39 This 36 yrs old Male presents to ER via Ambulatory with complaints of Abdominal Pain. pm1 14:39 The patient presents with abdominal pain in the right upper quadrant. Onset: The pm1 symptoms/episode began/occurred this morning, at 03:00. The symptoms do not radiate. Associated signs and symptoms: none. Pertinent negatives: nausea, vomiting, and diarrhea, chest pain, shortness of breath. The symptoms are described as sharp, stabbing. Modifying factors: The symptoms are alleviated by nothing, the symptoms are aggravated by movement. Severity of pain: in the emergency department the pain is actually worse. The patient has experienced a previous episode, approximately 1 weeks ago, similar symptoms, not as severe. Onset after lifting heavy object. Patient reports pain onset today possibly attributes to lifting 50 pounds case of gatorade . The patient has not recently seen a physician. Historical: - Allergies: 14:58 SHELLFISH; vg1 - Home Meds: 14:58 Pepcid Oral [Active]; Albuterol Inhl [Active]; vg1 - PMHx: 14:58 Asthma; Hiatal Hernia; vg1 - PSHx: 14:58 Cholecystectomy; vg1 - Immunization history:: Client reports having NOT received the Covid vaccine. - Social history:: Smoking status: Patient denies any tobacco usage or history of. ROS: 14:39 Constitutional: Negative for fever, chills, and weight loss, Cardiovascular: Negative pm1 for chest pain, palpitations, and edema, Respiratory: Negative for shortness of breath, cough, wheezing, and pleuritic chest pain. 14:39 Back: Negative for injury and pain, MS/Extremity: Negative for injury and deformity, Skin: Negative for injury, rash, and discoloration. 14:39 Abdomen/GI: Positive for abdominal pain, of the right upper quadrant, Negative for nausea, vomiting, and diarrhea. 14:39 All other systems are negative. Exam: 14:39 Constitutional: This is a well developed, well nourished patient who is awake, alert, pm1 and in no acute distress. Head/Face: Normocephalic, atraumatic. 14:39 Back: No spinal tenderness. No costovertebral tenderness. Full range of motion. Skin: Warm, dry with normal turgor. Normal color with no rashes, no lesions, and no evidence of cellulitis. MS/ Extremity: Pulses equal, no cyanosis. Neurovascular intact. Full, normal range of motion. 14:39 Cardiovascular: Exam negative for acute changes, Rate: normal, Rhythm: regular, Pulses: no pulse deficits are appreciated. 14:39 Respiratory: Exam negative for acute changes, respiratory distress, shortness of breath. 14:39 Abdomen/GI: Inspection: obese Palpation: soft, in all quadrants, mild abdominal tenderness, in the right upper quadrant. 14:39 Neuro: Exam negative for acute changes, Orientation: is normal, Mentation: is normal, Motor: is normal, moves all fours. Vital Signs: 14:53 BP 139 / 73; Pulse 70; Resp 16; Temp 98.8; Pulse Ox 97% on R/A; Weight 99.79 kg; Height vg1 5 ft. 5 in. (165.10 cm); Pain 5/10; 14:53 Body Mass Index 36.61 (99.79 kg, 165.10 cm) vg1 MDM: 15:04 Patient medically screened. pm1 17:29 Data reviewed: vital signs. Data interpreted: Pulse oximetry: on room air is 97 %. pm1 Interpretation: normal. 17:29 Counseling: I had a detailed discussion with the patient and/or guardian regarding: the pm1 historical points, exam findings, and any diagnostic results supporting the discharge/admit diagnosis, lab results, radiology results, the need for outpatient follow up, to return to the emergency department if symptoms worsen or persist or if there are any questions or concerns that arise at home. 04/11 14:38 Order name: CBC with Diff; Complete Time: 15:37 ma2 04/11 14:39 Order name: CMP; Complete Time: 15:53 ma2 04/11 14:39 Order name: Lipase; Complete Time: 15:53 ma2 04/11 14:39 Order name: Urine Microscopic Only; Complete Time: 17:03 ma2 04/11 16:14 Order name: Urine Dipstick-Ancillary; Complete Time: 16:16 [facility] 04/11 16:17 Order name: Urine Dipstick-Ancillary [facility] 04/11 14:39 Order name: IV Saline Lock; Complete Time: 15:20 [facility] 04/11 14:39 Order name: Labs collected and sent; Complete Time: 15:21 [facility] 04/11 15:03 Order name: CT Abd/Pelvis - IV Contrast Only; Complete Time: 16:13 pm1 Administered Medications: 17:05 Drug: Ketorolac 30 mg Route: IVP; Site: left antecubital; vg1 17:33 Follow up: Response: No adverse reaction ss 17:41 Follow up: Response: No adverse reaction; Marked relief of symptoms vg1 17:05 Drug: NS 0.9% 1000 ml Route: IV; Rate: 1000 ml; Site: right antecubital; vg1 17:41 Follow up: IV Status: Completed infusion; IV Intake: 1000ml vg1 17:21 Drug: Flexeril (cyclobenzaprine) 10 mg Route: PO; ss 17:33 Follow up: Response: Medication administered at discharge. ss 17:41 Follow up: Response: No adverse reaction vg1 Disposition Summary: 04/11/22 17:31 Discharge Ordered Location: Home pm1 Problem: new pm1 Symptoms: have improved pm1 Condition: Stable pm1 Diagnosis - Abdominal pain, unspecified pm1 - Strain of muscle, fascia and tendon of abdomen pm1 Followup: pm1 - With: Emergency Department - When: As needed - Reason: Worsening of condition Followup: pm1 - With: Private Physician - When: 2 - 3 days - Reason: Recheck today's complaints, Continuance of care, Re-evaluation by your physician Discharge Instructions: - Discharge Summary Sheet pm1 - Abdominal Pain, Adult pm1 - Muscle Strain pm1 Forms: - Medication Reconciliation Form pm1 - Thank You Letter pm1 - Antibiotic Education pm1 - Prescription Opioid Use pm1 Prescriptions: - Cyclobenzaprine 10 mg Oral Tablet - take 1 tablet by ORAL route every 8 hours As needed; 30 tablet; Refills: 0, pm1 Product Selection Permitted - Diclofenac Sodium 75 mg Oral Tablet Sustained Release - take 1 tablet by ORAL route 2 times per day; 30 tablet; Refills: 0, Product pm1 Selection Permitted Signatures: Dispatcher [employer] EDJing Cleveland RN RN ss Diego Mays, HAT PRESSER HAT PRESSER pm1 Mario Barry MD MD ma2 Shari Desai RN RN vg1 Corrections: (The following items were deleted from the chart) 15:23 14:39 Urine Test ordered. bunny larsen
[2022-04-11 17:48] VITALS: BP 139/73; TEMP 98.8; O2SAT 97
== END 2022-04-11 17:42 | disposition home or self-care (01) ==
LOC: ER 14:19
DX: S39.011A Strain of muscle, fascia and tendon of abdomen, initial encounter (principal); X50.0XXA Overexertion from strenuous movement or load, initial encounter; Y93.89 Activity, other specified; Y92.9 Unspecified place or not applicable; Z91.013 Allergy to seafood; J45.909 Unspecified asthma, uncomplicated; K44.9 Diaphragmatic hernia without obstruction or gangrene
CPT/HCPCS: 96361; 85025; 36415; 83690; 80053; 74177; 96374; 99284; Q9967; J7030; 81003; 81015